=== PATIENT | male | born 1970 | race African-American/Black ===

== ENCOUNTER 2017-06-26 19:39 | Emergency (ER) | payer MEDICAID, OTHER ==
[~2017-06-26] VITALS: Ht 167.6 cm; Wt 70.0 kg
[~2017-06-26 19:39] MED LIST: IBUP800T23 PO; METH750T2 PO; PRED20 PO
[2017-06-26 19:42] VITALS: BP 125/58; PULSE 98; RESP 16; TEMP 98.2; O2SAT 99
--- NOTE | 2017-06-26 20:40 | PD ---
HPI Chief Complaint: Headache Time Seen by Provider: 20:33 Travel History International Travel<30 days: No Contact w/Intl Traveler<30days: No Traveled to known affect area: No History of Present Illness HPI 47-year-old male presents to the emergency room for evaluation of right-sided headache for the past one week. Gradual onset. States it is constant but worse throughout the day. He is associated nausea without vomiting, photophobia , and phonophobia. He denies history of migraines. Denies trauma or injury to the head. He is not on blood thinners. He is been taking Tylenol without significant relief in symptoms. No chronic medical conditions or daily medications. No personal or family history of stroke. PFSH Past Medical History Diminished Hearing: No Neurologic: Yes (rowan's palsy) ?: Not Past Surgical History Surgical History: No Previous Surgery Social History Alcohol Use: No Tobacco Use: No Substance Use: No Allergies-Medications (Allergen,Severity, Reaction): Coded Allergies: No Known Allergies (Unverified , 02/12/15) Reported Meds & Prescriptions Reported Meds & Active Scripts Active No Active Prescriptions or Reported Medications Review of Systems Except as stated in HPI: all other systems reviewed are Neg Physical Exam Narrative GENERAL: Well-developed, well-nourished male in no acute distress. Afebrile. Ambulatory. SKIN: Focused skin assessment warm/dry. HEAD: Atraumatic. Normocephalic. EYES: Pupils equal and round. No scleral icterus. No injection or drainage. No photophobia. ENT: No nasal bleeding or discharge. Mucous membranes pink and moist. NECK: Trachea midline. No JVD. CARDIOVASCULAR: Regular rate and rhythm. No murmur appreciated. RESPIRATORY: No accessory muscle use. Clear to auscultation. Breath sounds equal bilaterally. NEUROLOGICAL: Awake and alert. No obvious cranial nerve deficits. Motor grossly within normal limits. Normal speech. No pronator drift in upper or lower extremities. Five out of 5 muscle strength in all muscle groups. Data Data Last Documented VS Vital Signs Date Time Temp Pulse Resp B/P (MAP) Pulse Ox O2 Delivery O2 Flow Rate FiO2 06/26/17 19:42 98.2 98 16 125/58 (80) 99 Room Air Orders Orders Ct Brain W/O Iv Contrast(Rout) (06/26/17 ) Iv Access Insert/Monitor (06/26/17 20:33) Ketorolac Inj (Toradol Inj) (06/26/17 20:45) Diphenhydramine Inj (Benadryl Inj) (06/26/17 20:45) Prochlorperazine Inj (Compazine Inj) (06/26/17 20:45) MDM Medical Decision Making Medical Screen Exam Complete: Yes Emergency Medical Condition: Yes Medical Record Reviewed: Yes Differential Diagnosis Headache, tumor, migraine Narrative Course 47-year-old otherwise healthy male presents to the emergency room for evaluation of Veronica onset right-sided headache for the past week. Patient denies history of migraines. He has associated nausea, photophobia, and phonophobia. Physical exam is reassuring. Vital signs stable. Patient resting comfortably. No focal neurological deficits. Normal speech. PERRLA. Given the persistence of pain and no previous history of migraines, CT of the brain is ordered and pending. Patient was given Toradol, Compazine, and Benadryl in the emergency room. He'll be signed out to nighttime provider pending CT results. Scripts No Active Prescriptions or Reported Meds Condition: Simona Hoyt Jun 26, 2017 20:40
[2017-06-26] MEDS ORDERED: KETOROLAC TROMETHAMINE 30 MG/ML (IVP) VIAL IV PUSH ONE (20:45)
[2017-06-26] MEDS ORDERED: PROCHLORPERAZINE INJ 10 MG/2 ML VIAL IV PUSH ONE (20:45)
[2017-06-26] MEDS ORDERED: diphenhydrAMINE HCL 50 MG/ML VIAL IV PUSH ONE (20:45)
--- NOTE | 2017-06-26 21:21 | RADRPT ---
EXAM DATE/TIME: 06/26/2017 20:58 [facility] COMPARISON: No previous studies available for comparison. INDICATIONS : Headaches. RADIATION DOSE: 34.14 CTDIvol (mGy) MEDICAL HISTORY : None SURGICAL HISTORY : None. ENCOUNTER: Initial ACUITY: 1 day PAIN SCALE: 10/10 LOCATION: cranial TECHNIQUE: Multiple contiguous axial images were obtained of the head. Using automated exposure control and adj ustment of the mA and/or kV according to patient size, radiation dose was kept as low as reasonably a chievable to obtain optimal diagnostic quality images. DICOM format image data is available electro nically for review and comparison. FINDINGS: CEREBRUM: The ventricles are normal for age. No evidence of midline shift, mass lesion, hemorrhage or acute in farction. No extra-axial fluid collections are seen. POSTERIOR FOSSA: The cerebellum and brainstem are intact. The 4th ventricle is midline. The cerebellopontine angle i s unremarkable. EXTRACRANIAL: The visualized portion of the orbits is intact. SKULL: The calvaria is intact. No evidence of skull fracture. CONCLUSION: Normal examination. Nick Newberry MD on June 26, 2017 at 21:19 Board Certified Radiologist. This report was verified electronically.
[2017-06-26] MEDS ORDERED: BUTA1CAP PO (22:11)
--- NOTE | 2017-06-26 22:15 | PD ---
Physical Exam Date Seen by Provider: Jun 26, 2017 Data Data Last Documented VS Vital Signs Date Time Temp Pulse Resp B/P (MAP) Pulse Ox O2 Delivery O2 Flow Rate FiO2 06/26/17 22:06 06/26/17 19:42 98.2 98 16 99 Room Air Orders Orders Ct Brain W/O Iv Contrast(Rout) (06/26/17 ) Iv Access Insert/Monitor (06/26/17 20:33) Ketorolac Inj (Toradol Inj) (06/26/17 20:45) Diphenhydramine Inj (Benadryl Inj) (06/26/17 20:45) Prochlorperazine Inj (Compazine Inj) (06/26/17 20:45) MDM Medical Record Reviewed: Yes Supervised Visit with LUIS: Yes Interpretation(s) Vital Signs Date Time Temp Pulse Resp B/P (MAP) Pulse Ox O2 Delivery O2 Flow Rate FiO2 06/26/17 22:06 06/26/17 19:42 98.2 98 16 125/58 (80) 99 Room Air Last Impressions Head CT 06/26/17 0000 Signed Impressions: Service Date/Time: June 20:58 - CONCLUSION: Normal examination. Nick Newberry MD Differential Diagnosis Migraine headache, ich, intracranial mass, SAH though unlikely Narrative Course I, Dr. Chavis, have reviewed the advance practice practitioner's documentation and am in agreement, met with the patient face to face, made the diagnosis, and the medical decision making was done by me. *My assessment and Findings: Migraine headache. Patient 47-year-old male who presents to emergency room with complaints of right -sided headache which has been ongoing for the past week. Patient reports that headache has been constant, patient reports that nothing was pain better or worse. Patient denies thunderclap headache or sudden onset of symptoms. Reports that he began having a headache 1 week ago and had a gradual onset of symptoms. Patient reports no vision changes, no photophobia, no nausea or vomiting with the symptoms. Reports that he has had similar headaches in the past when compared to today. Patient reports that he is not on any anticoagulants, he currently is not on any medications. Patient with benign physical exam, patient with no neurovascular compromise. Patient was given IV Toradol, Benadryl as well as Compazine. Patient with complete resolution of symptoms at this time. CT of the head was benign, this with patient to follow-up with his primary care doctor as well as neurologist. Signs and symptoms of when to return to the ER was reviewed with patient in detail. Patient at this time suffers no emergencies and is safe to be discharged to home. Diagnosis Primary Impression: Cephalgia Qualified Codes: R51 - Headache Referrals: Tayler Orr MD Patient Instructions: General Instructions Additional Instruction: Please provide patient with a copy of their lab work and studies at discharge* * Please follow up with your primary care doctor in 2-3 days Return to the ER if symptoms worsen or progress Return to the ER as needed Please follow up with neurologist as soon as possible Med/Other Pt SpecificInfo: Prescription(s) given Scripts Ojsrnngbiz-Ukzglhctressp-Plooaplq (Fioricet) 50-300-40 Mg Cap 1-2 CAP PO Q6H Y for HEADACHE, #12 CAP 0 Refills Prov: Hermelinda Chavis DO 06/26/17 Disposition: 01 DISCHARGE HOME Condition: Stable Hermelinda Chavis DO Jun 26, 2017 22:15
== END 2017-06-26 22:21 | disposition home or self-care (01) ==
LOC: NEPD 19:39
DX: R51 Headache (principal)
CPT/HCPCS: 70450; 96374; 96375; 99285; J0780; J1200; J1885